=== PATIENT | male | born 1975 | race Caucasian/White ===

== ENCOUNTER 2017-02-06 22:23 | Inpatient (IN) | payer MEDICAID ==
[~2017-02-06] VITALS: Ht 188 cm; Wt 135.2 kg
[~2017-02-06 22:23] MED LIST: GABAPENTIN800 MG PO; HYDROCHLOROTHIA25 M1 PO; JANUVIA50 MG PO; LISINOPRIL40 MG PO; METOPROLOL 25 M25 MG PO; NAPROSYN 500MG500 MG PO; PERCOCET1 TA1 PO; SUNMARK OMEPRAZ20 MG PO; TRAMADOL 50MG T50 MG PO; ZITHROMAX Z PA250 MG PO
[2017-02-06 22:26] VITALS: BP 196/123
[2017-02-06 23:12] LABS: LYMPH # 2.5 K/mm3 (0.7-4.5); LYMPH % 33.1 % (10-50)
[2017-02-06 23:14] LABS: HEMOGLOBIN 15.3 g/dL (14.1-18.0)
[2017-02-06 23:52] LABS: ALLEN'S TEST ACCEPTABLE; ARTERIAL ABE -0.4 MMOL/L (-2.4-+2.3); ARTERIAL TCO2 25.7 MMOL/L (23-27); OXYGEN 2LPM
[2017-02-07] VITALS (31 sets, daily range): BP systolic 133–205; BP diastolic 75–120
--- NOTE | 2017-02-07 00:28 | Emergency Room Report ---
History of Present Illness Time Seen by [id number] Presenting Problem in Triage Pt arrived:Walked Presenting Problem:CHEST PAIN FOR 3 DAYS, WORSE TODAY, DESCRIBES SOMEONE SITTING ON CHEST, PAIN RADIATES DOWN BOTH ARMS. SOB. Onset of symptoms date/time:02/06/1701/15/1800 or onset unknown for: Treatment Prior to Arrival: [employer] Provided by: Sepsis Risk Assessment: Temp: 98.8 B/P: 172/99 MAP: 147 Pulse: 76 Resp: 20 Recent fever? N Clinical Suspician of Infection? N Mental Status: 1 - Regular (Normal Baseline) Sepsis Risk:Low Sepsis Risk Have you (or family members/close friends) recently traveled outside the [place]? N If Yes, where/when: Have you had exposure to infectious disease within the past month? N TB? Other? Specify: Source patient, RN notes reviewed, family, old records Exam Limitations no limitations Comment pt with 3 day hx of progressive ant chest pain with rad to upper ext with hx of htn, iddm, tob use - he had cath 4 yrs ago at - he reported no stents Cardiac Chest Pain Chest pain indicative of cardiac Yes Timing/Duration 4-6 hours, constant Severity/Quality moderate, pressure Location central Chest Pain Radiation arm(s) Activities at Onset light activity Nitro Today/Relief no nitro taken today Aspirin Treatment Today 325 mg x 1, provided by ED Beta farrah treatment today provided at home, no relief Cardiac risk factors Uncontrolled HTN, Diabetes, + family history, obesity Prior Workup/Intervention cardiac cath Timing/Duration this evening Severity moderate ALLERGIES Coded Allergies: No Known Drug Allergies (05/21/15) Home Medications Reported Medications OXYCODONE HCL/ACETAMINOPHEN (Percocet 10-325 MG Tablet) 1 TAB PO TID Gabapentin (Gabapentin 600MG) 800 MG PO QID Metoprolol Tartrate (Metoprolol 25MG) 50 MG PO BID Omeprazole 20 MG PO DAILY Lisinopril (Lisinopril 40MG) 40 MG PO DAILY HYDROCHLOROTHIAZIDE (Hydrochlorothiazide) 25 MG PO DAILY History Medical History General CAD? No Angina: Yes RI: Yes Hypertension? Yes Hyperlipidemia? Yes CHF? No DVT? No PE? No COPD? No Asthma? No Anemia? No GERD? No Gastric ulcers? No GI Bleed? No Hernia? No Thyroid Problems? No Hypothyroidism? No CVA? No Seizures? No Diabetes? Yes Insulin Dependent: No Insulin Pump: No Home FSBS? Yes Renal Insuffiency? No End Stage Renal Disease? No UTI? No Stones? Yes BPH? No GB Disease: No Nephritic Syndrome? No Asplenia? No Hepatitis? No Sickle Cell Disease? No Arthritis? Yes Migraines? No Cataracts? No Glaucoma? No MRSA? No HIV? No TB? No Anxiety? No Depression? No Cancer? No More? No Immunization Hx DT/Tetanus NOT SURE Surgical Hx Previous Surgery?Y KIDNEY STONES HEART CATH Social History Smoking Hx Smoker: Current Every Day Smoker Tobacco: Yes Type Cigarettes Packs/day 1 1/2 - 2 Packs Alcohol Alcohol: No Drugs none Review of Systems All Other Systems Reviewed and Negative Constitutional denies fever Eyes denies drainage ENT denies: ear discharge, epistaxis, throat pain. Respiratory denies cough, shortness of breath, denies wheezing Cardiovascular see HPI, chest pain, denies palpitations, denies syncope Gastrointestinal denies abdominal pain, denies diarrhea, denies vomiting Genitourinary denies: dysuria, frequency, hesitancy, hematuria. Musculoskeletal denies back pain, denies joint pain, denies joint swelling, denies neck pain Skin denies rash Psychiatric/Neurological denies headache, denies seizure Physical Exam Vital Signs Vital Signs Date Time Temp Pulse Resp B/P Pulse O2 O2 Flow FiO2 Ox Delivery Rate 02/07 0034 76 20 179/115 95 02/06 2356 76 20 172/99 95 02/06 2324 76 20 167/109 95 02/06 2226 98.8 76 20 196/123 97 - WBC >12,000 or <4,000 or 10% bands? 2 or more SIRS Criteria Met? B/P:180/9 MAP:147 Creatinine >2.0? UA output<0.5ml/kg/hr for 2 hrs? Platelet count >100,000? Lactate >2.0mmol/1? INR >1.2 or PTT > than 60 sec? Evidence of Organ Dysfunction? Provider documented clinical suspician of infection? N Sepsis Criteria Count: 1 Sepsis Risk: Low Sepsis Risk General Appearance no apparent distress Eye Exam - bilateral eye PERRL, bilateral eye EOMI Ear, Nose, Throat normal ENT inspection Neck supple Respiratory Status No: respiratory distress. Lung Sounds bilateral: decreased breath sounds. Cardiovascular regular rate/rhythm, no gallop, no JVD, no murmur, no rub Peripheral Pulses Pulses normal Yes Gastrointestinal soft Extremities no calf tenderness, swelling Strength 4 Upper Ext (L), 4 Upper Ext (R), 4 Lower Ext (L), 4 Lower Ext (R) Neurologic alert, top collar maker II-XII nml as tested, no motor/sensory deficits Reflexes Reflexes normal No Mental status normal mood/affect Skin intact Medical Decision Making LABS/Meds/Orders Pt receiving controlled substance in ED? No Results/Orders Laboratory Tests 02/06/17 2348: ABG pH 7.40, ABG pCO2 (Temp Corrct 40.0, ABG pO2 (Temp Correct 67.0 L, ABG HCO3 24.0, ABG Total CO2 25.7, ABG O2 Sat (Calculated) 93, ABG Base Excess -0.4, Robbin Test ACCEPTABLE, Blood Gas Comments LEFT RADIAL 02/06/17 2307: Sodium 146 H, Potassium 3.5, Chloride 108 H, Carbon Dioxide 31, BUN 15, Creatinine 0.9, Estimated Creat Clear 201 H, Estimated GFR (MDRD) 93, Glucose 146 H, Calcium 8.5, Total Bilirubin 0.7, AST 83 H, ALT 94 H, Alkaline Phosphatase 59, Creatine Kinase 583 H, CK-MB (CK-2) Rel Index 0.5, CK and CKMB Interp 2.9, Troponin I 0.02, Total Protein 7.1, Albumin 3.7, Globulin 3.4 H, Albumin/Globulin Ratio 1.1 02/06/17 2300: B-Natriuretic Peptide 275 H, WBC 7.6, RBC 4.86, Hgb 15.3, Hct 44.4, MCV 91.4, RDW 13.9, Plt Count 98 L, MPV 9.6, Gran % 58.6, Gran # 4.5, Lymphocytes % 33.1, Monocytes % 5.0, Eosinophils % 2.7, Basophils % 0.6, Lymphocytes # 2.5, Monocytes # 0.4, Eosinophils # 0.2, Basophils # 0.1, PUBS MCHC 34.4, MCH 31.5 H Current Medication Orders Sig/Yeimi Start time Last Medication Dose Route Stop Time Status Admin Aspirin 0 .STK-MED ONE 02/07 41 DC .ROUTE Furosemide 0 .STK-MED ONE 02/07 35 DC .ROUTE Nitroglycerin 0 .STK-MED ONE 02/07 0034 DC .ROUTE Aspirin 325 MG ONCE ONE 02/07 0030 DC 02/07 PO 02/07 0031 0044 Furosemide 40 MG ONCE ONE 02/07 0030 DC 02/07 IV 02/07 0031 0040 Nitroglycerin 1 IN ONCE ONE 02/07 0030 DC TP 02/07 0031 Levalbuterol HCl 0 .STK-MED ONE 02/066 DC INH Levalbuterol HCl 1.25 MG ONCE ONE 02/06 2315 DC 02/06 INH 02/07 2316 232 Sodium Chloride 10 ML PRN PRN 02/06 2245 AC IV 02/07 223 Orders Procedure Date/time Status Decision to admit 02/07 005 Active BRAIN NATRIURETIC PEPTIDE 02/07 0029 Complete RT Aerosol Treatment, Provide 02/06 2329 Active RT REQUEST XOPENEX NEB 02/06 230 Active ELECTROCARDIOGRAM REQUEST 02/06 2235 Active CHEST-PORTABLE 02/06 2235 Active IV SALINE LOCK 02/06 2235 Active CBC WITH AUTO DIFF 02/06 2235 Complete CARDIAC ENZYMES 02/06 2235 Complete CHEM 12 PROFILE 02/06 2235 Complete 12 LEAD EKG-ATUL (INITIAL) 02/06 2223 Active CM/EKG CM/survey research associate Rhythm Normal Sinus Rhythm EKG no evid. of ischemic chgs XRAY/CT/US XRAY/CT/US XRAY chest XR interpretation by reviewed by me Xray Results abnormal (cm/chf) KIANA Score for N-Stemi/Angina KIANA N-STEMI SCORE KIANA N-STEMI SCORE Response Value Age of patient Less than 65 yrs 0 Number of risk factors for CAD Presence of 3 or more 1 Prior coronary artery stenosis (seen in angiography) Less than 50% 0 ST-Segment deviation on ECG (>1 min) Absent 0 Prior aspirin intake No ASA in the last 7 days 0 Severe anginal chest pain 2 or more episodes/24hr 1 Elevated cardiac markers(CK-MB or troponin) Absent 0 Total 2 Risk Stratification 0-2= Low Risk Patients Departure Departure Time of Disposition 0057 Disposition Still a Patient Clinical Impression Primary Impression: Chest pain Qualifiers: Chest pain type: precordial pain Qualified Code: R07.2 - Precordial pain Secondary Impressions: HTN (hypertension) Qualifiers: Hypertension type: essential hypertension Qualified Code: I10 - Essential (primary) hypertension IDDM (insulin dependent diabetes mellitus) Overweight Tobacco use Condition STABLE Referrals Jay Nicole MD discussed with dr burnette and dr nicole ED Critical Care Critical Care No at [phone]
[2017-02-07] MEDS ORDERED: HUMULIN 70100 UNITS/ SC (01:29)
[2017-02-07] MEDS ORDERED: BASAGLAR K100 UNIT/1 SQ (01:34)
[2017-02-07] MEDS ORDERED: SUBOXONE 8 MG-21 FIL SL (04:28)
--- NOTE | 2017-02-07 05:40 | RADIOLOGY REPORT PS360 ---
CHEST-PORTABLE HISTORY: CHEST PAIN ORDERING PHYSICIAN: Jay Stafford MD PATIENT AGE: 41 years COMPARISON: 07/21/1715 FINDINGS: There are low lung volumes. There is mild cardiomegaly and pulmonary venous congestion consistent with mild CHF. In addition there is increased density in the right lower lung zone consistent with pneumonia. Recommend follow until clear. No acute bony anomalies. IMPRESSION: 1. Low lung volumes with mild CHF. 2. Consolidation in the right lower lung zone consistent with pneumonia. Recommend upright PA and lateral chest for further evaluation
--- NOTE | 2017-02-07 09:21 | PHARMACY CLINIC NOTE ---
Patient Demographics Patient Demographics Admission date: 02/07/17 Date: 02/07/17 Time: 919 Allergies Coded Allergies: No Known Drug Intolerances (NA 02/07/17) HEIGHT- FT: 6 IN: 2.00 K.616 VTE General Information Labs: Laboratory Tests 02/06 2300 Hematology Hgb (14.1 - 18.0 g/dL) 15.3 Hct (42.0 - 52.0 %) 44.4 Plt Count (142 - 424 K/mm3) 98 L Disclaimer The following section includes nursing documentation that has been pulled in for pharmacy review. Patient's VTE score: 3 Patient's VTE Risk: LOW RISK Clinical trial participant? No VTE prophylaxis [id number] VTE prophylaxis ordered? Yes Type of prophylaxis/treatment: GARTH at 0921
--- NOTE | 2017-02-07 09:22 | HISTORY AND PHYSICAL REPORT ---
History and Physical ([facility]CA) Date of admission: 02/07/17 Chief complaint: Chest pain History: History of Present Illness: This 41-year-old white male is admitted with chest pain. He is diabetic and he's had previous problems with coronary artery disease. He was hospitalized 4 years ago at [facility] but did not require stents. He presented in the emergency room [facility] with complaints of chest pressure as if someone was sitting on his chest. He stated he had pain radiating down both arms and he had shortness of breath associated. He has some degree of shortness of breath ongoing basis. He does not use an inhaler currently. He is diabetic and on insulin. She has strong family history of heart disease. Past Medical History: Medical History: CAD? Yes Angina: Yes [place]: Yes ([facility]) Hypertension? Yes Hyperlipidemia? Yes CHF? No DVT? No PE? No COPD? Yes Asthma? No Anemia? No GERD? No Gastric ulcers? No GI Bleed? No Hernia? No Thyroid Problems? No Hypothyroidism? No CVA? No Seizures? No Diabetes? Yes Insulin Dependent: Yes Insulin Pump: No Home FSBS? Yes Renal Insuffiency? Yes (2 years ago with dehydration) UTI? No Stones? Yes BPH? No GB Disease: No Nephritic Syndrome? No Asplenia? No Hepatitis? No Sickle Cell Disease? No Arthritis? Yes Migraines? No Cataracts? No Glaucoma? No MRSA? No HIV? No TB? No Anxiety? No Depression? No Cancer? No More? Yes Additional hx: He is maintained on Suboxone 2 tablets daily. He has dental problems. Additional medical history: History of elevated liver functions Surgical history: Previous Surgery?Y 1. KIDNEY STONES 2 HEART CATH, [facility]. No stents area Medications: Reported Medications INSUL REG 30%ISOPHAN 70% HUMAN (Humulin 70-30 Vial) 60 UNITS SC BID Insulin Glargine,Hum.rec.anlog (Basaglar Kwikpen U-100) 25 UNIT SQ QHS BUPRENORPHINE HCL/NALOXONE HCL (Suboxone 8 MG-2 MG Sl Film) 2 SL DAILY Gabapentin (Gabapentin 600MG) 800 MG PO QID Metoprolol Tartrate (Metoprolol 25MG) 50 MG PO BID Omeprazole 20 MG PO DAILY Lisinopril (Lisinopril 40MG) 40 MG PO DAILY HYDROCHLOROTHIAZIDE (Hydrochlorothiazide) 25 MG PO DAILY Allergies: Coded Allergies: No Known Drug Intolerances (NA 02/07/17) Family History: Family history: Postive for: CAD, DM, HTN. Negative for: cancer. Additional family history: His father has heart disease and has had coronary artery bypass graft and stents. He has high blood pressure and is diabetic. His mother also has heart disease and high blood pressure. She has had a heart attack. He has half brothers and sisters: one brother and 2 sisters. He believes they are in good health. The patient is . He has 2 children and both of them have high blood pressure. Social History: Smoking Hx Tobacco: Yes Smoker: Current Every Day Smoker Type: Cigarettes Packs/day: < 1 Pack (1 pack a day) Are you exposed to second hand Yes Alcohol: Alcohol: Yes (occasional) How much do you drink Less Than One Drink A Day For how long Longer Than 5 Years When was your last drink Greater Than 72 Hours Ago Hx of Drug Use: Drug Use? 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 No Constitutional Positive for: fatigue, weak. No: chills, recent weight loss. ENT No: ear ache, nose bleed, ear drainage, hearing loss, mouth pain, nasal congestion, ear ringing, sinus problems, sore throat, throat swelling, tongue pain, tongue swelling, toothache (dental problems), voice change. Cardiovascular Positive for: chest pain. No: palpitations. Respiratory Positive for: dyspnea on exertion, shortness of air. No: productive cough ( sputum). GI No: abdominal pain, constipation, diarrhea, nausea, vomitting. (male) No: flank pain, frequency. Skin No: bruising, rash. Neurological Positive for: headache. No: bladder dysfunction, bowel dysfunction, confusion, vision change. Immune/allergy No: allergy. Eyes No: blurry vision, diploplia. Musculoskeletal Positive for: joint pain. Heme No: bleeding. Psychiatric No: agitation, change in mental status. Physical Exam: Vital signs: 1ST Vital Signs Result Date Time Pulse Ox 97 02/06 2226 B/P 196/123 02/06 2226 Temp 98.8 02/06 2226 Pulse 76 02/06 2226 Resp 20 02/06 2226 O2 Delivery ROOM AIR 02/07 221 O2 Flow Rate 2 02/07 221 Exam: General appearance: alert, obese Eyes: conjunctiva clear, PERRLA ENT: mucous membranes moist, poor dentition Neck: no carotid bruit, no JVD Cardiovascular: regular rate & rhythm, no murmur Respiratory: good air movement, wheezing (some) ABD: soft, no tenderness, no organomegaly, obese Genitourinary: normal voiding & quantity Extremities: edema (2+) Musculoskeletal: normal exam, equal muscle strength Skin: dry, intact Neuro: alert, no deficit, oriented, speech clear Lab data: Labs: Laboratory Tests 02/07/17 0653: Creatine Kinase 392 H, CK-MB (CK-2) Rel Index 0.6, CK and CKMB Interp 2.2, Troponin I < 0.02 02/07/17 0624: POC Glucose 70 02/07/17 0420: Creatine Kinase 468 H, CK-MB (CK-2) Rel Index 0.6, CK and CKMB Interp 2.7, Troponin I < 0.02, Triglycerides 144, Cholesterol 175, LDL Cholesterol 115.2, VLDL Cholesterol 28.8, HDL Cholesterol 31.0 L 02/06/17 2348: ABG pH 7.40, ABG pCO2 (Temp Corrct 40.0, ABG pO2 (Temp Correct 67.0 L, ABG HCO3 24.0, ABG Total CO2 25.7, ABG O2 Sat (Calculated) 93, ABG Base Excess -0.4, Robbin Test ACCEPTABLE, Blood Gas Comments LEFT RADIAL 02/06/17 2307: Sodium 146 H, Potassium 3.5, Chloride 108 H, Carbon Dioxide 31, BUN 15, Creatinine 0.9, Estimated Creat Clear 201 H, Estimated GFR (MDRD) 93, Glucose 146 H, Calcium 8.5, Total Bilirubin 0.7, AST 83 H, ALT 94 H, Alkaline Phosphatase 59, Creatine Kinase 583 H, CK-MB (CK-2) Rel Index 0.5, CK and CKMB Interp 2.9, Troponin I 0.02, Total Protein 7.1, Albumin 3.7, Globulin 3.4 H, Albumin/Globulin Ratio 1.1 02/06/17 2300: B-Natriuretic Peptide 275 H, WBC 7.6, RBC 4.86, Hgb 15.3, Hct 44.4, MCV 91.4, RDW 13.9, Plt Count 98 L, MPV 9.6, Gran % 58.6, Gran # 4.5, Lymphocytes % 33.1, Monocytes % 5.0, Eosinophils % 2.7, Basophils % 0.6, Lymphocytes # 2.5, Monocytes # 0.4, Eosinophils # 0.2, Basophils # 0.1, PUBS MCHC 34.4, MCH 31.5 H Diagnosis(es): 1. Chest pain 2. HTN (hypertension) 3. IDDM (insulin dependent diabetes mellitus) 4. Overweight 5. Tobacco use 6. Diabetes 7. Encounter for monitoring Suboxone maintenance therapy Plan: His blood sugar was 70 this morning so he switched over to D5 half normal saline. He is to be seen by cardiology this morning. at 0971
[2017-02-08] VITALS (38 sets, daily range): BP systolic 125–197; BP diastolic 63–111
[2017-02-08 06:25] LABS: HEMOGLOBIN 14.4 g/dL (14.1-18.0); LYMPH # 1.6 K/mm3 (0.7-4.5); LYMPH % 16.7 % (10-50)
--- NOTE | 2017-02-08 10:13 | ACUTE CARE PROGRESS NOTE (QUA) ---
Progress Notes Subjective Date 02/08/17 Time 1009 Note The patient is feeling okay. He would like to get up and move around more. I told him he can get up and move about in the room. He has not had cardiology evaluation yet. He takes Suboxone as an outpatient. I have started him on oxycodone 5 mg 3 times a day. He states he has had an abuse problem with oxycodone in the past. His blood pressure has been running high and he is receiving a high dose of nitroglycerin IV. I have added amlodipine for blood pressure. Objective Findings Laboratory Tests 02/08/17 0613: POC Glucose 158 H 02/08/17 0545: Sodium 130 L, Potassium 3.2 L, Chloride 102, Carbon Dioxide 32, BUN 9, Creatinine 0.6 L, Estimated Creat Clear 322 H, Estimated GFR (MDRD) 148, Glucose 153 H, Calcium 8.9, WBC 9.8, RBC 4.50 L, Hgb 14.4, Hct 41.2 L, MCV 91.5, RDW 13.7, Plt Count 100 L, MPV 10.9 H, Gran % 74.7, Gran # 7.3, Lymphocytes % 16.7, Monocytes % 6.4, Eosinophils % 1.9, Basophils % 0.3, Lymphocytes # 1.6, Monocytes # 0.6, Eosinophils # 0.2, Basophils # 0.0, PUBS MCHC 35.0, MCH 32.1 H 02/07/17 2024: POC Glucose 169 H 02/07/17 1707: POC Glucose 98 02/07/17 1153: POC Glucose 153 H Last VS-Temp:98.7 B/P:176/84 Pulse:81 Resp:18 SaO2:93 OXYGEN Last weight lbs:308 oz:4 K.82 Method:Bed Scales Exam General appearance: alert, no acute distress Eyes: anicteric, PERRLA ENT: mucous membranes moist Cardiovascular: regular rate & rhythm (distant sounds) Respiratory: good air movement, no respiratory distress ABD: soft, no tenderness Genitourinary: normal voiding & quantity Extremities: no peripheral edema Skin: dry, intact Neuro: alert, oriented, speech clear Reviewed: medications, vital signs, lab results Assessment/Plan Problem List 1. Chest pain 2. HTN (hypertension) 3. IDDM (insulin dependent diabetes mellitus) 4. Overweight 5. Tobacco use 6. Diabetes 7. Encounter for monitoring Suboxone maintenance therapy 8. Hypokalemia 9. History of opioid abuse Patient condition Stable Plan: make medication changes, await cardiology evaluation. This inpt stay is expected to cross 2 MNs from start of care Yes at 1013
[2017-02-09] VITALS (19 sets, daily range): BP systolic 105–187; BP diastolic 45–113
--- NOTE | 2017-02-09 07:30 | CONSULT NOTE ---
Standard Demographics Patient Demo Date of Consultation: 02/09/17 Referring Provider: Ashu Stafford MD Reason for Consultation: Chest pain, Malignant HTN PRIMARY DIAGNOSIS: CHEST PAIN Problem list Problem list: 1. Diabetes mellitus, type II, treated for one to 2 years 2. Hypertension 3. Tobacco use, 1.5 packs per day, started age 15 4. Strong family history of coronary disease in both parents in their mid 40s 5. Chronic Back pain, currently on Suboxone therapy A. History of the run over by a tractor at age 4 6. Reported heart disease with cardiac catheterization approximately 2012 at [facility] in [place] without need for intervention. Question heart attack at that time. 7. Hyperlipidemia History of present illness: History of present illness: 41-year-old white male with a 3 day history of increasing episodes of chest pressure, shortness of breath and chest tightness with bilateral arm pain, worse with ambulation or activity that would improve slightly with rest. He came to ER for evaluation and was subsequently admission. Patient was placed on nitroprusside drip due to continued elevated BP and symptoms with improvement in blood pressure. Patient states symptoms have resolved since admission but he has not been up moving around. Troponins have returned normal 3. Mildly elevated BNP at 278 with chest x-ray showing low lung volumes, mild congestive heart failure and RIGHT lower lobe pneumonia. Cardiology consulted for evaluation. Electrocardiogram on admission shows sinus rhythm with QTC of 491 ms. Past Medical History: General: Hypertension Yes CVA No Seizures No TB No COPD Yes Asthma No Diabetes Yes Insulin Dependent Yes Insulin Pump No Angina Yes MD Yes ([facility]) Hyperlipidemia Yes Urinary No Cancer No Rheumatic H.D. No Ulcers No MRSA No GB Disease No Additional hx He is maintained on Suboxone 2 tablets daily. He has dental problems. Past Surgical HX: Previous Surgery?Y KIDNEY STONES HEART CATH Allergies Coded Allergies: No Known Drug Intolerances (NA 02/07/17) Home medications: Reported Medications Gabapentin (Gabapentin 800MG) 800 MG PO QID Lisinopril (Lisinopril 40MG) 40 MG PO DAILY BUPRENORPHINE HCL/NALOXONE HCL (Suboxone 8 MG-2 MG Sl Film) 2 SL DAILY INSUL REG 30%ISOPHAN 70% HUMAN (Humulin 70-30 Vial) 60 UNITS SC BID Insulin Glargine,Hum.rec.anlog (Basaglar Kwikpen U-100) 25 UNIT SQ QHS Metoprolol Tartrate (Metoprolol 25MG) 50 MG PO BID Omeprazole 20 MG PO DAILY HYDROCHLOROTHIAZIDE (Hydrochlorothiazide) 25 MG PO DAILY Current Medications: Current Medications Amlodipine Besylate 5 MG DAILY PO Insulin Human [rDNA origin] 0 .STK-MED ONE SC (DC) Sodium Chloride 250 ML .STK-MED ONE IV (DC) Sodium Nitroprusside 0 .STK-MED ONE IV (DC) Oxycodone HCl 0 .STK-MED ONE .ROUTE (DC) Sodium Chloride 500 ML .STK-MED ONE IV (DC) Sodium Nitroprusside 0 .STK-MED ONE IV (DC) Sodium Chloride 250 ML .STK-MED ONE IV (DC) Sodium Nitroprusside 0 .STK-MED ONE IV (DC) Oxycodone HCl 0 .STK-MED ONE .ROUTE (DC) Insulin Human [rDNA origin] 0 .STK-MED ONE SC (DC) Sodium Nitroprusside 50 MG .Q25H IV Sodium Chloride 250 ML Acetaminophen 0 .STK-MED ONE PO (DC) Oxycodone HCl 0 .STK-MED ONE .ROUTE (DC) Potassium Chloride 20 MEQ TID PO Insulin Human [rDNA origin] 0 .STK-MED ONE SC (DC) Amlodipine Besylate 0 .STK-MED ONE .ROUTE (DC) Amlodipine Besylate 2.5 MG DAILY PO (DC) Acetaminophen 0 .STK-MED ONE PO (DC) Oxycodone HCl 5 MG Q8 PO Pantoprazole Sodium 40 MG QHS PO Hydrochlorothiazide 25 MG DAILY PO Gabapentin 800 MG QID PO Lisinopril 40 MG DAILY PO Metoprolol Tartrate 50 MG BID PO Polyethylene Glycol 17 GM DAILY PO Diagnostic Test (Pha) 1 EACH W/MEALS&HS FS Insulin Human [rDNA origin] SEE ADMIN CRITERIA FOR LOW INTENSITY SS W/MEALS&HS SC Potassium Chloride/Dextrose/Sod Cl 1,000 ML .[id number] IV Nitroglycerin/Dextrose 250 ML .Q25H IV (DC) Acetaminophen 650 MG Q4HP PRN PO Nicotine 21 MG DAILYP PRN TD Ondansetron HCl 4 MG Q6HP PRN IV Immunization HX DT/Tetanus NOT SURE Pneumonia Never Had TB Test in last year No Family history Family HX Family Hx Insignificant No Diabetes Yes CAD Yes Hypertension Yes Hyperlipidemia Yes Cancer No TB No Social Hx: Smoking HX Tobacco Yes Type Cigarettes Packs/day < 1 PACK (1 pack a day) Are you/the child exposed to second-hand smoke: Yes Alcohol Alcohol: Yes (occasional) How much do you drink Less Than One Drink A Day For how long Longer Than 5 Years When was your last drink Greater Than 72 Hours Ago Hx of Drug Use Drug Use? Yes (now on Suboxone) Drug(s) of Choice: marijuana Review of systems: Constitutional weakness. Respiratory SOB with excertion. Cardiovascular see HPI, chest pain Gastrointestinal/Abdominal No no symptoms reported Genitourinary No: no symptoms reported. Musculoskeletal back pain. Neurological Yes: parasthesia. Exam: Admission Vital Signs: 1ST Vital Signs Result Date Time Pulse Ox 97 02/06 2226 B/P 196/123 02/06 2226 Temp 98.8 02/06 2226 Pulse 76 02/06 2226 Resp 20 02/06 2226 O2 Flow Rate 2 02/06 2320 O2 Delivery ROOM AIR 02/07 0221 Last Vital Signs: Vital Signs Result Date Time Pulse Ox 97 02/09 0700 B/P 127/65 02/09 0700 O2 Delivery OXYGEN 02/09 07 O2 Flow Rate 3 02/09 0700 Pulse 73 02/09 0700 Resp 17 02/09 07 Temp 97.5 02/09 0600 Exam General appearance: alert, awake, no acute distress Neck: no carotid bruit, no JVD Cardiovascular: regular rate & rhythm, no murmur Respiratory: rhonchi at the RIGHT lower base. Otherwise unremarkable ABD: soft, no tenderness Extremities: moves all, no peripheral edema, RIGHT dorsalis pedis and posterior tibial pulses diminished compared with LEFT. Neuro: alert, intact, oriented Laboratory data: Laboratory Tests 02/09/17 0613: POC Glucose 169 H 02/09/17 0405: Sodium 142, Potassium 3.4 L, Chloride 104, Carbon Dioxide 34 H, BUN 10, Creatinine 0.7 L, Estimated Creat Clear 275 H, Estimated GFR (MDRD) 124, Glucose 181 H, Calcium 8.7 02/08/17 2016: POC Glucose 194 H 02/08/17 1715: POC Glucose 171 H 02/08/17 1145: POC Glucose 159 H 02/08/17 0613: POC Glucose 158 H 02/08/17 0545: Sodium 130 L, Potassium 3.2 L, Chloride 102, Carbon Dioxide 32, BUN 9, Creatinine 0.6 L, Estimated Creat Clear 322 H, Estimated GFR (MDRD) 148, Glucose 153 H, Calcium 8.9, WBC 9.8, RBC 4.50 L, Hgb 14.4, Hct 41.2 L, MCV 91.5, RDW 13.7, Plt Count 100 L, MPV 10.9 H, Gran % 74.7, Gran # 7.3, Lymphocytes % 16.7, Monocytes % 6.4, Eosinophils % 1.9, Basophils % 0.3, Lymphocytes # 1.6, Monocytes # 0.6, Eosinophils # 0.2, Basophils # 0.0, PUBS MCHC 35.0, MCH 32.1 H 02/07/17 2024: POC Glucose 169 H 02/07/17 1707: POC Glucose 98 02/07/17 1153: POC Glucose 153 H 02/07/17 0653: Creatine Kinase 392 H, CK-MB (CK-2) Rel Index 0.6, CK and CKMB Interp 2.2, Troponin I < 0.02 02/07/17 0624: POC Glucose 70 02/07/17 0420: Creatine Kinase 468 H, CK-MB (CK-2) Rel Index 0.6, CK and CKMB Interp 2.7, Troponin I < 0.02, Triglycerides 144, Cholesterol 175, LDL Cholesterol 115.2, VLDL Cholesterol 28.8, HDL Cholesterol 31.0 L 02/06/17 2348: ABG pH 7.40, ABG pCO2 (Temp Corrct 40.0, ABG pO2 (Temp Correct 67.0 L, ABG HCO3 24.0, ABG Total CO2 25.7, ABG O2 Sat (Calculated) 93, ABG Base Excess -0.4, Robbin Test ACCEPTABLE, Blood Gas Comments LEFT RADIAL 02/06/17 2307: Sodium 146 H, Potassium 3.5, Chloride 108 H, Carbon Dioxide 31, BUN 15, Creatinine 0.9, Estimated Creat Clear 201 H, Estimated GFR (MDRD) 93, Glucose 146 H, Calcium 8.5, Total Bilirubin 0.7, AST 83 H, ALT 94 H, Alkaline Phosphatase 59, Creatine Kinase 583 H, CK-MB (CK-2) Rel Index 0.5, CK and CKMB Interp 2.9, Troponin I 0.02, Total Protein 7.1, Albumin 3.7, Globulin 3.4 H, Albumin/Globulin Ratio 1.1 02/06/17 2300: B-Natriuretic Peptide 275 H, WBC 7.6, RBC 4.86, Hgb 15.3, Hct 44.4, MCV 91.4, RDW 13.9, Plt Count 98 L, MPV 9.6, Gran % 58.6, Gran # 4.5, Lymphocytes % 33.1, Monocytes % 5.0, Eosinophils % 2.7, Basophils % 0.6, Lymphocytes # 2.5, Monocytes # 0.4, Eosinophils # 0.2, Basophils # 0.1, PUBS MCHC 34.4, MCH 31.5 H Plan: Assessment: 1. Chest pain, shortness of breath with concern for angina pectoris in this patient with multiple cardiac risk factors and a KIANA score of 3 (recurrent pain , cardiac risk factors, previous coronary artery disease on cardiac cath) 2. Diabetes mellitus 3. Hypertension, malignant currently on nitroprusside, Norvasc, metoprolol, HCTZ and lisinopril 4. Tobacco use 5. Hypokalemia 6. Hyperlipidemia with LDL 115 7. Right side pneumonia by CXR Recommendations: 1. Proceed with [facility] with renal artery angiogram. 2. Echo has been ordered 3. Renal ultrasound to evaluate for renal artery mass at 1410
--- NOTE | 2017-02-09 08:13 | ACUTE CARE PROGRESS NOTE (QUA) ---
Progress Notes Subjective Date 02/09/17 Time 0802 Note States he is ready to go home; having a cardiac cath this AM; denies any further CP and SOB; walked in the hallway with his daughters last PM without problems. Still has a little headache which he attributes to the med. BP has improved on nitroprusside gtt. Objective Findings Laboratory Tests 02/09/17 0613: POC Glucose 169 H 02/09/17 0405: Sodium 142, Potassium 3.4 L, Chloride 104, Carbon Dioxide 34 H, BUN 10, Creatinine 0.7 L, Estimated Creat Clear 275 H, Estimated GFR (MDRD) 124, Glucose 181 H, Calcium 8.7 02/08/17 2016: POC Glucose 194 H 02/08/17 1715: POC Glucose 171 H 02/08/17 1145: POC Glucose 159 H Vital Signs Date Time Temp Pulse Resp B/P Pulse O2 O2 Flow FiO2 Ox Delivery Rate 02/09 0700 73 17 127/65 97 OXYGEN 3 02/09 0630 74 13 140/83 96 3 02/09 0600 97.5 79 12 133/76 94 3 02/09 0430 13 02/09 0332 91 ROOM AIR 02/09 0314 93 14 129/71 93 3 02/09 0200 79 12 123/45 93 02/09 0130 86 13 105/59 93 02/09 0100 83 14 144/60 90 02/09 0000 97.5 91 14 169/87 95 /10 2330 75 16 176/85 90 / 2300 92 14 139/63 90 /10 2230 89 19 179/97 92 /10 2145 96 15 188/88 93 /10 2000 92 17 161/95 92 09/10 1955 16 09/10 1930 79 15 183/84 95 09/10 1851 98.0 172/75 09/10 1848 98.0 60 16 170/90 93 09/10 1800 60 16 170/90 93 ROOM AIR /10 1700 63 20 143/91 93 ROOM AIR / 1652 165/91 09/10 1600 98.0 71 20 159/106 94 ROOM AIR / 1510 137/66 09/10 1500 125/96 09/10 1500 72 16 125/96 94 ROOM AIR 02/08 1450 149/64 /10 1440 126/71 /10 1430 75 129/84 09/10 1420 69 133/81 96 09/10 1410 128/69 09/10 1400 98.5 69 18 149/85 97 OXYGEN 2 09/10 1400 98.1 77 18 149/85 95 09/10 1334 18 09/10 1310 2 09/10 1300 74 16 192/111 96 OXYGEN 2 / 1200 98.1 62 18 152/92 95 OXYGEN 2 /10 1143 160/94 09/10 1107 2 02/08 1100 98.5 55 16 146/94 95 OXYGEN 2 09/10 1100 71 16 146/94 96 09/10 1030 157/95 09/10 1000 99.1 85 18 158/84 95 OXYGEN 2 09/10 1000 99.0 85 20 158/84 95 09/10 0930 180/92 09/10 0911 98.7 81 18 176/84 93 2 09/10 0900 2 02/08 0900 176/84 09/10 0900 81 18 176/84 93 OXYGEN 2 02/08 0839 88 161/91 Current Medications Amlodipine Besylate 5 MG DAILY PO Fentanyl Citrate 25 MCG PRN PRN IV Fentanyl Citrate 50 MCG PRN PRN IV Flumazenil 0.2 MG PRN PRN IV Heparin Sodium (Beef Lung) 5,000 UNITS PRN PRN IV Heparin Sodium/Sodium Chloride 3,000 UNITS PRN PRN IV Lidocaine HCl 20 ML ONCE ONE IJ (DC) Midazolam HCl 1 MG PRN PRN IV Midazolam HCl 1 MG PRN PRN IV Naloxone HCl 0.4 MG [id number] PRN IV Nitroglycerin 800 MCG PRN PRN IV Verapamil HCl 5 MG PRN PRN IV Insulin Human [rDNA origin] 0 .STK-MED ONE SC (DC) Sodium Chloride 250 ML .STK-MED ONE IV (DC) Sodium Nitroprusside 0 .STK-MED ONE IV (DC) Oxycodone HCl 0 .STK-MED ONE .ROUTE (DC) Sodium Chloride 500 ML .STK-MED ONE IV (DC) Sodium Nitroprusside 0 .STK-MED ONE IV (DC) Sodium Chloride 250 ML .STK-MED ONE IV (DC) Sodium Nitroprusside 0 .STK-MED ONE IV (DC) Oxycodone HCl 0 .STK-MED ONE .ROUTE (DC) Insulin Human [rDNA origin] 0 .STK-MED ONE SC (DC) Sodium Nitroprusside 50 MG .Q25H IV Sodium Chloride 250 ML Acetaminophen 0 .STK-MED ONE PO (DC) Oxycodone HCl 0 .STK-MED ONE .ROUTE (DC) Potassium Chloride 20 MEQ TID PO Insulin Human [rDNA origin] 0 .STK-MED ONE SC (DC) Amlodipine Besylate 0 .STK-MED ONE .ROUTE (DC) Amlodipine Besylate 2.5 MG DAILY PO (DC) Acetaminophen 0 .STK-MED ONE PO (DC) Oxycodone HCl 5 MG Q8 PO Pantoprazole Sodium 40 MG QHS PO Hydrochlorothiazide 25 MG DAILY PO Gabapentin 800 MG QID PO Lisinopril 40 MG DAILY PO Metoprolol Tartrate 50 MG BID PO Polyethylene Glycol 17 GM DAILY PO Diagnostic Test (Pha) 1 EACH W/MEALS&HS FS Insulin Human [rDNA origin] SEE ADMIN CRITERIA FOR LOW INTENSITY SS W/MEALS&HS SC Potassium Chloride/Dextrose/Sod Cl 1,000 ML .[id number] IV Nitroglycerin/Dextrose 250 ML .Q25H IV (DC) Acetaminophen 650 MG Q4HP PRN PO Nicotine 21 MG DAILYP PRN TD Ondansetron HCl 4 MG Q6HP PRN IV 02/08 1500 09/10 2300 09/11 0700 Intake Total 960 1955 Output Total 600 650 Balance 960 1355 -650 Intake, IV 935 Intake, Oral 960 1020 Output, Urine 600 650 Patient 305 lb Weight Last VS-Temp:97.5 B/P:127/65 Pulse:73 Resp:17 SaO2:97 OXYGEN Last weight lbs:305 oz:7 K.544 Method:Bed Scales 02/06/17 CXR IMPRESSION: 1. Low lung volumes with mild CHF. 2. Consolidation in the right lower lung zone consistent with pneumonia. Recommend upright PA and lateral chest for further evaluation Exam General appearance: alert, active, no acute distress Cardiovascular: regular rate & rhythm Respiratory: clear to auscultation (bilat anterior and posterior) ABD: non-distended, soft, no tenderness, bowel sounds present Extremities: no peripheral edema, no calf tenderness Neuro: alert, oriented, speech clear Assessment/Plan Problem List 1. Chest pain 2. HTN (hypertension) 3. IDDM (insulin dependent diabetes mellitus) 4. Overweight 5. Tobacco use 6. Diabetes 7. Encounter for monitoring Suboxone maintenance therapy 8. Hypokalemia 9. History of opioid abuse Patient condition improved Plan: for cardiac cath this AM; extra dose of KCL This inpt stay is expected to cross 2 MNs from start of care Yes at 0812
--- NOTE | 2017-02-09 11:04 | RADIOLOGY REPORT PS360 ---
CARDIAC CATHETERIZATION DATE OF CATHETERIZATION:02/09/2017 10:11 AM PROCEDURES: 1. Left heart catheterization 2. Left ventriculogram 3. Selective coronary angiogram 4. Bilateral selective renal angiogram 5. Drug-eluting stent deployment to the distal dominant circumflex artery 6. Drug-eluting stent deployment to the proximal large ramus intermedius INDICATION FOR TEST: 1. Unstable angina 2. Coronary artery disease 3. Malignant hypertension 4. Renovascular hypertension Clinical history: 41-year-old diabetic gentleman admitted to the hospital with study during unstable angina and malignant hypertension. Patient required multiple antihypertensive medications including IV nitroprusside in order to manage chest pain and blood pressure over the weekend. Patient was brought to the [facility] with plans to perform left heart catheterization as well as bilateral selective renal angiography as secondary hypertension almost certainly has to be present based on the severity and fluctuating nature of patient's hypertension Informed consent was obtained prior to the procedure. COMPLICATIONS: None ESTIMATED BLOOD LOSS: Less than 10 ml. TECHNIQUE: One percent lidocaine was used to anesthetize the right groin. The right femoral artery was accessed via the Seldinger technique. A 4-Stateless sheath was placed in the right femoral artery. Over a 3 J-wire a JL 4 JR4 catheter were used to perform left heart catheterization left ventriculogram and selective coronary angiography. The JR4 catheter was used to selectively intubate the renal arteries bilaterally. At the end of the diagnostic angiogram 12,000 units of heparin was administered intravenously and the 4 Stateless sheath was exchanged for a 6 Stateless sheath. An EBU 3.75 guide catheter was placed in the left main artery. The ACT was out of range. 60 mg of Effient was given orally and a BMW wire was placed in the distal circumflex artery. 2.75 x 15 mm resolute Simone stent was deployed at 22 mane. Patient had significant supporting and there appeared to be a geographical miss with the first stent. An additional 2.75 x 12 mm resolute [place] stent was placed distal to the first stent yet still overlapping this time reducing the stenosis to less than 10%. This stent was deployed at 22 mane. KIANA-3 flow was present before and after the procedure. The wire was pulled back and placed into the ramus intermedius and a 2.5 x 15 mm resolute [place] stent was deployed at 24 mane in the very proximal segment reducing the focal 90% stenosis to 0%. KIANA-3 flow was present before and after the procedure. Closing ACT was 339 seconds. At the end of the procedure the apparatus was removed the groin is reprepped closure changed sheath was removed good hemostasis was achieved using Perclose device patient was transferred to the postop holding area in stable condition ANGIOGRAPHIC RESULTS: 1. The left main artery is normal 2. The left anterior descending artery proximally has 10-20% stenoses while the mid vessel has 10-20% stenoses as well. The entire vessel appears to have mild vascular ectasia. 3. The ramus intermedius is a large vessel and has a proximal 80-90% concentric stenosis and a distal 60-70% concentric stenosis 4. The circumflex artery is a dominant vessel and has a very focal highly eccentric greater than 90% stenosis immediately proximal to a very small marginal branch in the distal circumflex artery. Distal to this very eccentric 90% is a mostly eccentric 60-70% stenosis all basically one contiguous lesion 5. The right coronary artery is nondominant and has proximal eccentric 50% mid vessel 60% and a focal 90% stenosis distal to the RV marginal branch and a 2.25 mm segment 6. The BUTT ventriculogram reveals mild left ventricular dilatation preserved ejection fraction of 55-60% 7. The left ventricular end-diastolic pressure elevated at 20 mmHg 8. The right renal artery has a solitary ostium and quickly branches into trifurcating vessels all of which are angiographically normal 9. Left renal artery singular and normal IMPRESSION: 1. Coronary artery disease as described above 2. Successful stenting of the distal dominant circumflex artery severe disease reduced to 0% with 2 drug-eluting stents 3. Successful stenting of the proximal ramus intermedius severe disease reduced to 0% with 1 drug-eluting stent 4. Persistent severe stenosis and a nondominant right coronary artery and a 2.25 mm vessel 5. Mild left ventricular dilatation with elevated LVEDP and preserved ejection fraction 6. Normal renal arteries bilaterally PLAN: 1. Effient and aspirin 2. Absolute avoidance of tobacco products 3. LDL less than 55 4. Aggressive control of diabetes 5. Cardiac rehabilitation 6. Weight-loss 7. I recommend a secondary hypertension workup including a 24-hour urine for metanephrines and VMA 8. I would also recommend a renin and aldosterone level 9. I very strongly suspect pt has some form of secondary HTN
--- NOTE | 2017-02-09 15:39 | RADIOLOGY REPORT PS360 ---
US [id number] HISTORY: Malignant HTN with concern for renal mass ORDERING PHYSICIAN: Jay Stafford MD PATIENT AGE: 41 years COMPARISON: None FINDINGS: RIGHT KIDNEY:Unremarkable. Normal size and echogenicity. No hydronephrosis. 12 x 6 x 7 cm LEFT KIDNEY:Unremarkable. No hydronephrosis. Normal size and echogenicity. 13 x 7 x 6 cm. 16 mm left renal cyst OTHER FINDINGS: No other pertinent findings IMPRESSION: No evidence of renal mass. No hydronephrosis or cortical thinning. Small left renal cyst
--- NOTE | 2017-02-09 18:19 | ACUTE CARE PROGRESS NOTE (QUA) ---
Progress Notes Subjective Date 02/09/17 Time 1813 Note Mr. Taylor is stable status post 3 stents. His blood pressure has been elevated. Nitroglycerin patches will be ordered. Hydrochlorothiazide was DC'd and Maxide was ordered. There seems to be some turmoil in his family. One of his daughters wants him transferred to [place]. 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 Objective Findings Laboratory Tests 02/09/17 1709: POC Glucose 167 H 02/09/17 1154: POC Glucose 112 H 02/09/17 1039: POC Activ Clotting Time 323 *H 02/09/17 1023: POC Activ Clotting Time >400 *H 02/09/17 0613: POC Glucose 169 H 02/09/17 0405: Sodium 142, Potassium 3.4 L, Chloride 104, Carbon Dioxide 34 H, BUN 10, Creatinine 0.7 L, Estimated Creat Clear 275 H, Estimated GFR (MDRD) 124, Glucose 181 H, Calcium 8.7 02/08/17 2016: POC Glucose 194 H Last VS-Temp:98.3 B/P:162/103 Pulse:62 Resp:18 SaO2:95 ROOM AIR Last weight lbs:305 oz:7 K.546 Method:Bed Scales Exam General appearance: alert, no acute distress Eyes: conjunctiva clear Cardiovascular: regular rate & rhythm Respiratory: good air movement, basilar rales (more on RIGHT than LEFT) ABD: soft, no tenderness Extremities: edema (trace) Skin: dry, intact Neuro: alert, oriented, speech clear Assessment/Plan Problem List 1. Chest pain 2. HTN (hypertension) 3. IDDM (insulin dependent diabetes mellitus) 4. Overweight 5. Tobacco use 6. Diabetes 7. Encounter for monitoring Suboxone maintenance therapy 8. Hypokalemia 9. History of opioid abuse 10. Coronary artery disease Patient condition Stable Plan: continue current care, make medication changes (as mentioned above) This inpt stay is expected to cross 2 MNs from start of care Yes at 1818
--- NOTE | 2017-02-09 22:07 | RADIOLOGY REPORT PS360 ---
PROCEDURE: 2-D M-mode and color Doppler study INDICATIONS FOR THE TEST: Chest pain X COPD Heart Murmur Tobacco SmokingX Palpitations Fatigue Syncope Edema HypertensionXDiabetes MellitusX Rheumatic Fever SOBXDOE ObesityXHyperlipidemia Family History HD Additional History PATIENT INFORMATION HEIGHT: 74 WEIGHT:305 GENDER: Male B/P:127/65 2-D/M-MODE INTERPRETATION: 2-D MEASUREMENTS OBSERVED VALUES IN CMS Right Ventricular Dimension (RVDd) 2.6 Interventricular Septum (Thickness)(IVsd) 1.2 Left Ventricular Internal Dimensions(LVIDd) 5.1 Left Ventricular Posterior Wall (Thickness)(LVPWd) .9 Aortic Root 4.2 Aortic Cusp Separation 2.4 Left Atrial Dimensions (LAD) 3.2 2D 1. Left atrium is qualitatively mildly enlarged, left ventricle is normal size, left ventricle wall thickness is upper limit of normal, visually estimated ejection fraction approximately 55% with no obvious regional wall motion abnormality. 2. The right atrium is mildly enlarged, right ventricle is mildly dilated with normal contractility. 3. The aortic valve is minimally thickened and fibrosed. 4. The mitral and tricuspid valve are grossly normal. 5. The pulmonic valve is poorly visualized. 6. No significant pericardial effusion noted. DOPPLER INTERROGATION: Doppler interrogation of the aortic mitral and tricuspid valvular presence of mild mitral and tricuspid regurgitation, tricuspid and jet velocity insufficient for calculation of the right ventricular systolic pressure, grade 1 diastolic dysfunction seen without tissue Doppler evidence of raised left atrial pressure. CONCLUSION: 1. Mild biatrial enlargement, normal left ventricular size, visually estimated ejection 5% with no obvious regional wall motion abnormality, grade 1 diastolic dysfunction seen without tissue Doppler evidence of raised left atrial pressure. 2. Mildly enlarged right atrium and right ventricle, contractility of the right ventricle is normal. 3. Mild mitral and tricuspid regurgitation. 4. No significant pericardial effusion noted.
[2017-02-10] VITALS (9 sets, daily range): BP systolic 114–160; BP diastolic 68–94
--- NOTE | 2017-02-10 09:20 | ACUTE CARE PROGRESS NOTE (QUA) ---
Progress Notes Subjective Date 02/10/17 Time 0916 Note 41 yo WM in bed in NAD. No chest pain overnight. BP elevated last evening with changes to meds made per Dr. Stafford resulting in improvement in BP. Objective Findings Last VS-Temp:98.2 B/P:160/72 Pulse:77 Resp:18 SaO2:94 ROOM AIR Last weight lbs:298 oz:0 K.171 Method:Floor Scales Exam General appearance: alert, awake, no acute distress Cardiovascular: regular rate & rhythm Respiratory: clear to auscultation Reviewed: medications, vital signs, lab results Assessment/Plan Problem List 1. Chest pain Qualifiers: Chest pain type: precordial pain Qualified Code: R07.2 - Precordial pain 2. HTN (hypertension) Assessment/Plan: Secondary workup for HTN in process with 24 hr urine, renin and aldosterone levels pending. Will increase norvasc to 10 mg BID. Pt intolerant of NTG paste due to Headache. Qualifiers: Hypertension type: essential hypertension Qualified Code: I10 - Essential ( primary) hypertension 3. IDDM (insulin dependent diabetes mellitus) 4. Overweight 5. Tobacco use 6. Diabetes 7. Encounter for monitoring Suboxone maintenance therapy 8. Hypokalemia 9. History of opioid abuse 10. Coronary artery disease Assessment/Plan: On DAPT for MARILIN placed yesterday. On statin also. Patient condition Stable Plan: Continue to adjust meds for BP control. Anticipating home probably in AM. This inpt stay is expected to cross 2 MNs from start of care Yes at 0920
--- NOTE | 2017-02-10 13:07 | ACUTE CARE PROGRESS NOTE (QUA) ---
Progress Notes Subjective Date 02/10/17 Time 1300 Note He is feeling well and anxious for discharge. His blood pressure seems to have stablized. Patient/family reports: feeling better Objective Findings Laboratory Tests 02/10/17 1141: POC Glucose 162 H 02/10/17 0602: POC Glucose 217 H 02/09/17 2021: POC Glucose 162 H 02/09/17 1709: POC Glucose 167 H Last VS-Temp:98.4 B/P:124/68 Pulse:81 Resp:16 SaO2:94 ROOM AIR Last weight lbs:298 oz:0 K.171 Method:Floor Scales Exam General appearance: normal appearance, alert, no acute distress Eyes: PERRLA ENT: mucous membranes moist Cardiovascular: no ectopics, regular rate & rhythm Respiratory: aerating well, clear to auscultation, no respiratory distress ABD: soft, no tenderness Extremities: edema (trace) Skin: dry, intact Neuro: normal exam Reviewed: medications, vital signs, lab results, Case discussed with Cardiology ([facility] [place] [facility]). Assessment/Plan Problem List 1. Chest pain 2. HTN (hypertension) 3. IDDM (insulin dependent diabetes mellitus) 4. Overweight 5. Tobacco use 6. Diabetes 7. Encounter for monitoring Suboxone maintenance therapy 8. Hypokalemia 9. History of opioid abuse 10. Coronary artery disease Plan: initiate discharge plan, Cefdinir 300mg bid. See med list. This inpt stay is expected to cross 2 MNs from start of care Yes at 1307
[2017-02-10] MEDS ORDERED: CARVEDILOL 25MG25 MG PO (13:14)
[2017-02-10] MEDS ORDERED: MAXZIDE 25 MG-31 TA1 PO (13:16)
[2017-02-10] MEDS ORDERED: K-DUR 2020 MEQ PO (13:18)
[2017-02-10] MEDS ORDERED: AMLODIPINE10 M2 PO (13:19)
[2017-02-10] MEDS ORDERED: HABITROL21 MG/24 H TD (13:21)
[2017-02-10] MEDS ORDERED: EFFIENT10 M2 PO (13:22)
[2017-02-10] MEDS ORDERED: LIPITOR40 M1 PO (13:23)
[2017-02-10] MEDS ORDERED: CEFDINIR300 M1 PO (14:16)
--- NOTE | 2017-02-12 08:32 | DISCHARGE SUMMARY STANDARD ---
Discharge Summary ([facility]2) Date of admission: 02/07/17 Date of discharge: 02/10/17 Problem List: 1. Chest pain 2. HTN (hypertension) 3. IDDM (insulin dependent diabetes mellitus) 4. Overweight 5. Tobacco use 6. Diabetes 7. Encounter for monitoring Suboxone maintenance therapy 8. Hypokalemia 9. History of opioid abuse 10. Coronary artery disease 11. Malignant essential hypertension History of present illness: Mr Taylor is a 41-year-old white male with a 3 day history of increasing episodes of chest pressure as if someone was sitting on his chest, shortness of breath and chest tightness with bilateral arm pain worsening with ambulation or activity that would improve slightly with rest. He came to ER for evaluation and was subsequently admitted. He was noted to be an insulin dependent diabetic with previous problems with coronary artery disease. He was hospitalized 4 years ago at [facility] but did not require stents. He also was noted to have a strong family history of heart disease. Exam on admission: 1ST Vital Signs Result Date Time Pulse Ox 97 02/06 2226 B/P 196/123 02/06 2226 Temp 98.8 02/06 2226 Pulse 76 02/06 222 Resp 20 02/06 2226 O2 Delivery ROOM AIR 02/07 221 O2 Flow Rate 2 02/07 022 Exam: General appearance: alert, obese Eyes: conjunctiva clear, PERRLA ENT: mucous membranes moist, poor dentition Neck: no carotid bruit, no JVD Cardiovascular: regular rate & rhythm, no murmur Respiratory: good air movement, wheezing (some) ABD: soft, no tenderness, no organomegaly, obese Genitourinary: normal voiding & quantity Extremities: edema (2+) Musculoskeletal: normal exam, equal muscle strength Skin: dry, intact Neuro: alert, no deficit, oriented, speech clear Hospital Course: Patient was placed on nitroprusside drip due to continued elevated BP and symptoms with improvement in blood pressure. Troponins returned normal 3 ; Mildly elevated BNP at 278 with chest x-ray showing low lung volumes, mild congestive heart failure and RIGHT lower lobe pneumonia. Electrocardiogram on admission showed sinus rhythm with QTC of 491 ms. Cardiology was consulted for evaluation with recommendations for [facility] with renal artery angiogram and Renal ultrasound to evaluate for renal artery mass. See test results. Patient had cardiac cath with placement of 3 stents; renal arteries were found to be normal; Plan was as follows: 1. Effient and aspirin 2. Absolute avoidance of tobacco products 3. LDL less than 55 4. Aggressive control of diabetes 5. Cardiac rehabilitation 6. Weight-loss 7. Recommendation for a secondary hypertension workup including a 24-hour urine for metanephrines and VMA, renin, and aldosterone level Patient had elevated BP after the cath and required medication adjustment after which his BP did stabilize. Patient did have a headache secondary to nitroglycerine. He ambulated without problems. On 02/10/17 he was found to be stable to be discharged to home. Laboratory data this visit: 02/07/17 0653: Creatine Kinase 392 H, CK-MB (CK-2) Rel Index 0.6, CK and CKMB Interp 2.2, Troponin I < 0.02 02/07/17 0624: POC Glucose 70 02/07/17 0420: Creatine Kinase 468 H, CK-MB (CK-2) Rel Index 0.6, CK and CKMB Interp 2.7, Troponin I < 0.02, Triglycerides 144, Cholesterol 175, LDL Cholesterol 115.2, VLDL Cholesterol 28.8, HDL Cholesterol 31.0 L 02/06/17 2348: ABG pH 7.40, ABG pCO2 (Temp Corrct 40.0, ABG pO2 (Temp Correct 67.0 L, ABG HCO3 24.0, ABG Total CO2 25.7, ABG O2 Sat (Calculated) 93, ABG Base Excess -0.4, Robbin Test ACCEPTABLE, Blood Gas Comments LEFT RADIAL 02/06/17 2307: Sodium 146 H, Potassium 3.5, Chloride 108 H, Carbon Dioxide 31, BUN 15, Creatinine 0.9, Estimated Creat Clear 201 H, Estimated GFR (MDRD) 93, Glucose 146 H, Calcium 8.5, Total Bilirubin 0.7, AST 83 H, ALT 94 H, Alkaline Phosphatase 59, Creatine Kinase 583 H, CK-MB (CK-2) Rel Index 0.5, CK and CKMB Interp 2.9, Troponin I 0.02, Total Protein 7.1, Albumin 3.7, Globulin 3.4 H, Albumin/Globulin Ratio 1.1 02/06/17 2300: B-Natriuretic Peptide 275 H, WBC 7.6, RBC 4.86, Hgb 15.3, Hct 44.4, MCV 91.4, RDW 13.9, Plt Count 98 L, MPV 9.6, Gran % 58.6, Gran # 4.5, Lymphocytes % 33.1, Monocytes % 5.0, Eosinophils % 2.7, Basophils % 0.6, Lymphocytes # 2.5, Monocytes # 0.4, Eosinophils # 0.2, Basophils # 0.1, PUBS MCHC 34.4, MCH 31.5 H 02/08/17 0545: Sodium 130 L, Potassium 3.2 L, Chloride 102, Carbon Dioxide 32, BUN 9, Creatinine 0.6 L, Estimated Creat Clear 322 H, Estimated GFR (MDRD) 148, Glucose 153 H, Calcium 8.9, WBC 9.8, RBC 4.50 L, Hgb 14.4, Hct 41.2 L, MCV 91.5, RDW 13.7, Plt Count 100 L, MPV 10.9 H, Gran % 74.7, Gran # 7.3, Lymphocytes % 16.7, Monocytes % 6.4, Eosinophils % 1.9, Basophils % 0.3, Lymphocytes # 1.6, Monocytes # 0.6, Eosinophils # 0.2, Basophils # 0.0, PUBS MCHC 35.0, MCH 32.1 H 02/09/17 0405: Sodium 142, Potassium 3.4 L, Chloride 104, Carbon Dioxide 34 H, BUN 10, Creatinine 0.7 L, Estimated Creat Clear 275 H, Estimated GFR (MDRD) 124, Glucose 181 H, Calcium 8.7 Imagin02/06/17 CXR IMPRESSION: 1. Low lung volumes with mild CHF. 2. Consolidation in the right lower lung zone consistent with pneumonia. Recommend upright PA and lateral chest for further evaluation 02/09/17 US of kidneys IMPRESSION: No evidence of renal mass. No hydronephrosis or cortical thinning. Small left renal cyst 02/09/17 Cardiac catheterization IMPRESSION: 1. Coronary artery disease as described above 2. Successful stenting of the distal dominant circumflex artery severe disease reduced to 0% with 2 drug-eluting stents 3. Successful stenting of the proximal ramus intermedius severe disease reduced to 0% with 1 drug-eluting stent 4. Persistent severe stenosis and a nondominant right coronary artery and a 2.25 mm vessel 5. Mild left ventricular dilatation with elevated LVEDP and preserved ejection fraction 6. Normal renal arteries bilaterally 02/09/17 ECHO CONCLUSION: 1. Mild biatrial enlargement, normal left ventricular size, visually estimated ejection 5% with no obvious regional wall motion abnormality, grade 1 diastolic dysfunction seen without tissue Doppler evidence of raised left atrial pressure. 2. Mildly enlarged right atrium and right ventricle, contractility of the right ventricle is normal. 3. Mild mitral and tricuspid regurgitation. 4. No significant pericardial effusion noted. Discharge medications: Stop taking the following medications: Metoprolol Tartrate (Metoprolol 25MG) 25 MG TABLET ORAL TWICE A DAY HYDROCHLOROTHIAZIDE (Hydrochlorothiazide) 25 MG TABLET ORAL DAILY Continue taking these medications: Gabapentin (Gabapentin 800MG) 800 MG TABLET 800 MILLIGRAM ORAL FOUR TIMES A DAY Omeprazole (Omeprazole) 20 MG TABLET.DR 20 MILLIGRAM ORAL DAILY Lisinopril (Lisinopril 40MG) 40 MG TABLET 40 MILLIGRAM ORAL DAILY INSUL REG 30%ISOPHAN 70% HUMAN (Humulin 70-30 Vial) 100 UNIT/ML (70-30) VIAL 60 UNITS Subcutaneous Injection TWICE A DAY Insulin Glargine,Hum.rec.anlog (Basaglar Kwikpen U-100) 100 UNIT/1 ML INSULN.PEN 25 UNIT SUB-Q AT BEDTIME NIGHTLY BUPRENORPHINE HCL/NALOXONE HCL (Suboxone 8 MG-2 MG Sl Film) 1 EACH FILM 2 FILM SUBLINGUAL DAILY Start taking the following new medications: Carvedilol (Carvedilol 25MG) 25 MG TABLET 25 MILLIGRAM ORAL TWICE A DAY Qty = 60 Refills = 2 TRIAMTERENE/HYDROCHLOROTHIAZID (Maxzide 37.5 MG-25 MG Tablet) 1 EACH TABLET 1 TABLET ORAL DAILY Qty = 30 Refills = 2 Nicotine (Nicotine Patch) 1 EACH PATCH.TD24 21 MILLIGRAM TRANSDERM DAILY NEEDED as needed for SMOKING CESSATION Qty = 30 No Refills Prasugrel HCl (Effient) 10 MG TABLET 10 MILLIGRAM ORAL DAILY Qty = 30 Refills = 2 Atorvastatin Calcium (Lipitor 40MG) 40 MG TABLET 40 MILLIGRAM ORAL AT BEDTIME NIGHTLY Qty = 30 Refills = 2 Potassium Chloride (K-Dur) 20 MEQ TAB.ER.PRT 20 Milliequivalent ORAL TWICE A DAY Qty = 60 Refills = 2 Amlodipine Besylate (Amlodipine) 10 MG TABLET 10 MILLIGRAM ORAL DAILY Qty = 30 Refills = 2 Cefdinir (Cefdinir) 300 MG CAPSULE 300 MILLIGRAM ORAL TWICE A DAY Qty = 14 No Refills Disposition: Patient was discharged in stable and satisfactory condition. Meds as per reconciliation sheet. Follow up: [address] Stafford Activity: Limited activity Diet: Low Fat/Low Cholesterol Discharge to: HOME Agency needed? N at 0831
== END 2017-02-10 17:20 | disposition home or self-care (01) | DRG 247 ==
LOC: ER 22:23 → 2ND 02-07 00:59 → ER 02-07 00:59 → 2ND 02-07 02:20 → ICU 02-07 02:20 → 2ND 02-07 02:20 → ICU 02-09 19:43
PROVIDERS: Emergency Medicine; Family Medicine; Internal Medicine
PROC: 4A023N7 Measurement of Cardiac Sampling and Pressure, Left Heart, Percutaneous Approach (ICD-10-PCS; principal; 2017-02-09 10:15)
PROC: B2111ZZ Fluoroscopy of Multiple Coronary Arteries using Low Osmolar Contrast (ICD-10-PCS; principal; 2017-02-09 10:15)
PROC: B2151ZZ Fluoroscopy of Left Heart using Low Osmolar Contrast (ICD-10-PCS; principal; 2017-02-09 10:15)
PROC: B4181ZZ Fluoroscopy of Bilateral Renal Arteries using Low Osmolar Contrast (ICD-10-PCS; principal; 2017-02-09 10:15)
PROC: 027135Z Dilation of Coronary Artery, Two Arteries with Two Drug-eluting Intraluminal Devices, Percutaneous Approach (ICD-10-PCS; principal; 2017-02-09 10:15)
DX: I25.110 Atherosclerotic heart disease of native coronary artery with unstable angina pectoris (principal); E11.22 Type 2 diabetes mellitus with diabetic chronic kidney disease; Z72.0 Tobacco use; I12.9 Hypertensive chronic kidney disease with stage 1 through stage 4 chronic kidney disease, or unspecified chronic kidney disease; N18.9 Chronic kidney disease, unspecified; Z79.4 Long term (current) use of insulin; J44.9 Chronic obstructive pulmonary disease, unspecified; M54.9 Dorsalgia, unspecified; Z79.891 Long term (current) use of opiate analgesic
CPT/HCPCS: C1725; C1760; C1769; C1876; C1894; J1644; Q9967